=== PATIENT | male | born 1950 | race Caucasian/White ===

== ENCOUNTER 2019-08-15 15:30 | Observation (INO) | payer MEDICARE, MEDICAID ==
[~2019-08-15] VITALS: Ht 177.8 cm; Wt 60.2 kg
--- NOTE | 2019-08-15 15:53 | NUR ---
REPORT FROM [facility]. PT CURRENTLY BEING TAKEN TO IMAGING.
[2019-08-15] MEDS ORDERED: PANTOPRAZOLE 80 MG in SODIUM CHLORIDE 0.9% 50 ML IVPB ONE (15:54)
[2019-08-15] MEDS ORDERED: PANTOPRAZOLE 80 MG in SODIUM CHLORIDE 0.9% 100 ML IV SCH ×2 (16:00→19:00)
[2019-08-15] MEDS ORDERED: SODIUM CHLORIDE 0.9% 1,000ML IVBOLUS ONE ×2 (16:00→17:00)
[2019-08-15] MEDS ORDERED: SODIUM CHLORIDE FLUSH 10ML SYR IVF ONE (16:00)
[2019-08-15] MEDS ORDERED: THIAMINE 100 MG/ML, 2ML IM SCH (16:15)
[2019-08-15 16:28] LABS: MEAN CORPUSCULAR HEMOGLOBIN 30.4 pg (27.5-34.5); MEAN CORPUSCULAR HGB CONC 33.4 g/dL (33.2-36.2); MEAN PLATELET VOLUME 8.1 fL (7.4-10.4); PLATELET COUNT 362 x10^3/uL (130-400); RED BLOOD COUNT 3.93 x10^6/uL (4.38-5.82)
[2019-08-15] MEDS ORDERED: METOCLOPRAMIDE 5 MG/ML, 2ML ONE (16:28)
[2019-08-15] MEDS ORDERED: THIAMINE 100 MG/ML, 2ML ONE (16:28)
[2019-08-15] MEDS ORDERED: METOCLOPRAMIDE 5 MG/ML, 2ML IVPush ONE (16:30)
[2019-08-15 16:37] LABS: INTERNATIONAL NORMALIZED RATIO 0.97 (0.93-1.1); PROTHROMBIN TIME 10.3 Seconds (9.6-11.5)
[2019-08-15 16:42] LABS: ALANINE AMINOTRANSFERASE 22 U/L (12-78); ALBUMIN 3.4 g/dL (3.4-5.0); ANION GAP 11 mmol/L (5-15); CALCIUM 8.7 mg/dL (8.5-10.1); CHLORIDE 114 mmol/L (98-107); CREATININE 1.15 mg/dL (0.7-1.3)
[2019-08-15 16:46] LABS: ALKALINE PHOSPHATASE 59 U/L (45-117); BILIRUBIN,TOTAL 0.3 mg/dL (0.2-1.0); TOTAL PROTEIN 6.5 g/dL (6.4-8.2); TROPONIN I < 0.015 ng/mL (0.000-0.045)
--- NOTE | 2019-08-15 16:48 | NUR ---
1ST IV STARTED, IVF INFUSING PER EMAR. VILLEGAS RN AT BEDSIDE FOR SECOND IV. PT ANXIOUS. ENCOURAGED TO TAKE SLOWER BREATHS. BLANKETS AND BEAR WARMER APPLIED. ICE CHIPS GIVEN FOR DISTRACTION WITH ERMD PERMISSION.
[2019-08-15] MEDS ORDERED: LORazepam 2 MG/ML, 1ML IVPush PRN (17:00)
[2019-08-15 17:01] LABS: BASOPHILS # (AUTO) 0.01 x10^3/uL (0-0.1); BASOPHILS % (AUTO) 0 % (0-1); EOSINOPHILS # (AUTO) 0.01 x10^3/uL (0-0.4); EOSINOPHILS % (AUTO) 0 % (1-7); LYMPHOCYTES # (AUTO) 0.98 x10^3/uL (1-3.4); LYMPHOCYTES % (AUTO) 5 % (22-44); MD SCAN; MONOCYTES # (AUTO) 0.61 x10^3/uL (0.2-0.8); MONOCYTES % (AUTO) 3 % (2-9); NEUTROPHILS # (AUTO) 17.47 x10^3/uL (1.8-6.8); NEUTROPHILS % (AUTO) 92 % (42-75)
[2019-08-15] MEDS ORDERED: DIPHENHYDRAMINE 50 MG/ML, 1ML ONE (17:02)
[2019-08-15] MEDS ORDERED: DIPHENHYDRAMINE 50 MG/ML, 1ML IVPush ONE (17:30)
--- NOTE | 2019-08-15 17:47 | NUR ---
PT CALM, VS IMPROVED FOLLOWING [facility] MEDICATION ADMINISTRATION. ERMD AWARE OF VS AND PT STATUS, WHICH IS SOMNOLENT. BLANKETS IN PLACE, SIDE RAILS UP. CALL LIGHT IN REACH.
--- NOTE | 2019-08-15 18:09 | NUR ---
PT CLEANED WITH WARM CLOTH ON LEGS, FACE, CHEST, ARMS, HANDS. AWAKENS EASILY TO VOICE. NAD NOTED AT THIS TIME.
[2019-08-15] MEDS ORDERED: NITROGLYCERIN 0.4 MG BOTTLE (25 TABS) SL PRN (19:00)
[2019-08-15] MEDS ORDERED: LIDODERM 5% PATCH TD PRN (19:00)
[2019-08-15] MEDS ORDERED: LORazepam 2 MG/ML, 1ML IV PRN ×5 (19:00)
[2019-08-15] MEDS ORDERED: LABETALOL 5MG/ML, 20ML IVPush PRN (19:00)
[2019-08-15] MEDS ORDERED: ONDANSETRON 2MG/ML, 2ML IVPush PRN (19:00)
[2019-08-15 19:06] VITALS: BP 128/81
[2019-08-15] MEDS ORDERED: DEXTROSE 50%, 50ML SYRINGE IVPush PRN (19:30)
[2019-08-15] MEDS ORDERED: DEXTROSE 4 GM TAB.CHEW PO PRN (19:30)
[2019-08-15] MEDS ORDERED: GLUCAGON 1 MG IM PRN (19:30)
[2019-08-15] MEDS: INSULIN LISPRO 100 UNITS/ML, PEN SQ-INSULIN SCH (19:59)
[2019-08-15] MEDS: SODIUM CHLORIDE FLUSH 10ML SYR IVF SCH (20:00)
[2019-08-15] MEDS ORDERED: GABA-827 PO (20:08)
[2019-08-15] MEDS ORDERED: FURO80TA3 PO (20:08)
[2019-08-15 20:13] VITALS: BP 128/81
[2019-08-15] MEDS: LACTATED RINGERS 1,000 ML IV SCH (21:10)
[2019-08-15 21:34] VITALS: BP 128/81
[2019-08-15 22:59] LABS: TROPONIN I 0.082 ng/mL (0.000-0.045)
[2019-08-16 00:33] VITALS: BP 128/84
[2019-08-16 01:22] VITALS: BP 147/81
[2019-08-16 06:25] LABS: CALCIUM 8.1 mg/dL (8.5-10.1); CHLORIDE 117 mmol/L (98-107)
[2019-08-16 06:33] LABS: ANION GAP 6 mmol/L (5-15); CHOL/HDL RATIO 2.8; CHOLESTEROL, TOTAL 83 mg/dL (140-239); CREATININE 0.97 mg/dL (0.7-1.3); HDL CHOL % 36 % (26-37); HDL CHOLESTEROL (DIRECT) 30 mg/dL (40-60); LDL CHOLESTEROL,CALCULATED 37 mg/dL (54-169); LDL/HDL RATIO 1.2 (0.5-3.0); TRIGLYCERIDES 82 mg/dL (50-200); TROPONIN I 0.017 ng/mL (0.000-0.045); VLDL CHOLESTEROL 16 mg/dL (0-25)
[2019-08-16] MEDS: INSULIN LISPRO 100 UNITS/ML, PEN SQ-INSULIN SCH ×4 (07:25→20:35)
[2019-08-16] MEDS: SODIUM CHLORIDE FLUSH 10ML SYR IVF SCH ×2 (07:58→21:22)
[2019-08-16 08:09] VITALS: BP 112/69
[2019-08-16] MEDS ORDERED: FENTANYL PF 100 MCG/2ML ONE (10:01)
[2019-08-16] MEDS ORDERED: DEXAMETHASONE 4 MG/ML, 1ML ONE (10:15)
[2019-08-16] MEDS ORDERED: PROPOFOL 10 MG/ML, 20ML ONE (10:15)
[2019-08-16] MEDS ORDERED: SUCCINYLCHOLINE 20 MG/ML, 10ML ONE (10:15)
[2019-08-16] MEDS ORDERED: ROCURONIUM 10MG/ML,5ML ONE (10:15)
[2019-08-16] MEDS ORDERED: CEFAZOLIN 1,000 MG ONE (10:15)
[2019-08-16] MEDS ORDERED: NEOSTIGMINE 1 MG/ML, 10ML ONE (10:15)
[2019-08-16] MEDS ORDERED: ONDANSETRON 2MG/ML, 2ML ONE (10:15)
[2019-08-16] MEDS ORDERED: GLYCOPYRROLATE 0.2MG/1ML, 5ML ONE (10:15)
[2019-08-16] MEDS ORDERED: ACETAMINOPHEN 325 MG TABLET PO PRN (11:00)
[2019-08-16] MEDS ORDERED: LORazepam 2 MG/ML, 1ML IVPush PRN (11:00)
[2019-08-16] MEDS ORDERED: FENTANYL PF 100 MCG/2ML IV PRN (11:00)
[2019-08-16] MEDS ORDERED: OXYcodone 5 MG/5 ML ORAL.SOL UDC PO PRN (11:00)
[2019-08-16] MEDS ORDERED: PROMETHAZINE 25 MG/ML, 1ML IV PRN (11:00)
[2019-08-16] MEDS ORDERED: ONDANSETRON 2MG/ML, 2ML IV PRN (11:00)
[2019-08-16] MEDS ORDERED: PROMETHAZINE 25 MG SUPP PR PRN (11:00)
[2019-08-16] MEDS ORDERED: ONDANSETRON ODT 8 MG PO PRN (11:00)
[2019-08-16] MEDS: LACTATED RINGERS 1,000 ML IV SCH (12:08)
[2019-08-16 12:55] VITALS: BP 137/72
[2019-08-16 18:30] VITALS: BP 118/68
[2019-08-16] MEDS: PANTOPRAZOLE 40MG TABLET PO SCH (21:22)
[2019-08-17] MEDS: morphine SULFATE 10 MG/ML, 1ML IVPush PRN ×2 (00:36→19:37)
[2019-08-17] MEDS: LACTATED RINGERS 1,000 ML IV SCH (00:43)
[2019-08-17 00:48] VITALS: BP 128/75
[2019-08-17 06:19] LABS: BASOPHILS # (AUTO) 0.04 x10^3/uL (0-0.1); BASOPHILS % (AUTO) 1 % (0-1); EOSINOPHILS # (AUTO) 0.25 x10^3/uL (0-0.4); EOSINOPHILS % (AUTO) 3 % (1-7); LYMPHOCYTES # (AUTO) 1.99 x10^3/uL (1-3.4); LYMPHOCYTES % (AUTO) 23 % (22-44); MD NO; MEAN CORPUSCULAR HGB CONC 33.8 g/dL (33.2-36.2); MEAN CORPUSCULAR VOLUME 91.7 fL (81-97); MEAN PLATELET VOLUME 8.8 fL (7.4-10.4); MONOCYTES % (AUTO) 8 % (2-9); NEUTROPHILS # (AUTO) 5.74 x10^3/uL (1.8-6.8); NEUTROPHILS % (AUTO) 66 % (42-75); PLATELET COUNT 209 x10^3/uL (130-400); RED BLOOD COUNT 2.52 x10^6/uL (4.38-5.82); RED CELL DISTRIBUTION WIDTH 16.2 % (9.4-14.8)
[2019-08-17 06:23] LABS: ANION GAP 5 mmol/L (5-15); CALCIUM 7.9 mg/dL (8.5-10.1); CHLORIDE 111 mmol/L (98-107)
[2019-08-17 06:24] LABS: CREATININE 0.78 mg/dL (0.7-1.3)
[2019-08-17 06:31] VITALS: BP 138/70
[2019-08-17] MEDS: INSULIN LISPRO 100 UNITS/ML, PEN SQ-INSULIN SCH ×2 (07:00→11:53)
[2019-08-17] MEDS: PANTOPRAZOLE 40MG TABLET PO SCH ×2 (07:53→20:20)
[2019-08-17] MEDS: SODIUM CHLORIDE FLUSH 10ML SYR IVF SCH ×2 (07:54→20:21)
[2019-08-17 12:07] VITALS: BP 151/75
[2019-08-17 19:24] VITALS: BP 122/67
[2019-08-18 00:44] VITALS: BP 146/80
[2019-08-18 06:09] VITALS: BP 158/83
[2019-08-18 06:23] LABS: BASOPHILS # (AUTO) 0.04 x10^3/uL (0-0.1); BASOPHILS % (AUTO) 1 % (0-1); EOSINOPHILS # (AUTO) 0.19 x10^3/uL (0-0.4); EOSINOPHILS % (AUTO) 3 % (1-7); LYMPHOCYTES # (AUTO) 1.52 x10^3/uL (1-3.4); LYMPHOCYTES % (AUTO) 20 % (22-44); MD NO; MEAN CORPUSCULAR HEMOGLOBIN 30.4 pg (27.5-34.5); MEAN CORPUSCULAR HGB CONC 33.1 g/dL (33.2-36.2); MEAN CORPUSCULAR VOLUME 91.7 fL (81-97); MEAN PLATELET VOLUME 8.3 fL (7.4-10.4); MONOCYTES # (AUTO) 0.55 x10^3/uL (0.2-0.8); MONOCYTES % (AUTO) 7 % (2-9); NEUTROPHILS % (AUTO) 69 % (42-75); PLATELET COUNT 239 x10^3/uL (130-400); RED BLOOD COUNT 2.75 x10^6/uL (4.38-5.82); RED CELL DISTRIBUTION WIDTH 16.3 % (9.4-14.8)
[2019-08-18 06:37] LABS: ANION GAP 6 mmol/L (5-15); CALCIUM 8.3 mg/dL (8.5-10.1); CHLORIDE 108 mmol/L (98-107)
[2019-08-18 06:40] LABS: CREATININE 0.73 mg/dL (0.7-1.3)
[2019-08-18] MEDS: morphine SULFATE 10 MG/ML, 1ML IVPush PRN ×3 (06:44→15:58)
[2019-08-18] MEDS ORDERED: REGADENOSON 0.4 MG/5 ML SYRINGE ONE (08:06)
[2019-08-18] MEDS: PANTOPRAZOLE 40MG TABLET PO SCH (08:30)
[2019-08-18] MEDS: SODIUM CHLORIDE FLUSH 10ML SYR IVF SCH (08:53)
[2019-08-18] MEDS ORDERED: AMLODIPINE 10 MG TAB PO SCH (09:00)
[2019-08-18] MEDS ORDERED: PANTOPRAZOLE 40 MG IV IVPush SCH (09:00)
[2019-08-18] MEDS ORDERED: PANT40TA5 PO (13:43)
[2019-08-18 14:50] VITALS: BP 138/78
[2019-08-18] MEDS ORDERED: PANTOPRAZOLE 40MG TABLET PO SCH (16:00)
== END 2019-08-18 16:44 ==
LOC: ED 15:50 → INTOOBSV 17:18 → EDIP 17:18 → 4WST 18:50
PROVIDERS: ADMIT Family Medicine; ATTEND Hospitalist
DX: K25.4 Chronic or unspecified gastric ulcer with hemorrhage (principal); K20.9 Esophagitis, unspecified; R07.89 Other chest pain; E43 Unspecified severe protein-calorie malnutrition; D62 Acute posthemorrhagic anemia; E87.2 Acidosis; R65.10 Systemic inflammatory response syndrome (SIRS) of non-infectious origin without acute organ dysfunction; I24.8 Other forms of acute ischemic heart disease; R64 Cachexia; E11.9 Type 2 diabetes mellitus without complications; E86.0 Dehydration; F10.20 Alcohol dependence, uncomplicated; I10 Essential (primary) hypertension; F17.200 Nicotine dependence, unspecified, uncomplicated; K44.9 Diaphragmatic hernia without obstruction or gangrene; Z88.0 Allergy status to penicillin; Z90.49 Acquired absence of other specified parts of digestive tract
CPT/HCPCS: 36415; 43235; 74022; 78452; 80048; 80053; 80061; 80307; 82962; 83605; 83690; 83735; 84484; 85014; 85018; 85025; 85610; 86850; 86900; 88305; 88342; 93005; 96365; 96366; 96372; 96375; 96376; 97162; 97166; 99291; A9502; C9113; G0378; J0330; J0690; J1100; J1200; J2270; J2405; J2704; J2710; J2765; J3010; J3411; J7030; J7120; 96374; J2785

== ENCOUNTER 2020-09-29 15:25 | Emergency (ER) | payer MEDICARE, MEDICAID ==
[~2020-09-29] VITALS: Ht 177.8 cm; Wt 62.1 kg
[~2020-09-29 15:25] MED LIST: FURO80TA3 PO; GABA-827 PO; PANT40TA6 PO
--- NOTE | 2020-09-29 15:59 | NUR ---
ASSUMED CARE OF PATIENT. PATIENT REPORTS RIGHT LOWER ABD PAIN SINCE YESTERDAY. VS STABLE. CALL LIGHT IN PLACE. WILL CONTINUE TO MONITOR.
[2020-09-29] MEDS ORDERED: MORPHINE SULFATE 4 MG/ML, 1ML ONE (16:18)
[2020-09-29] MEDS ORDERED: ONDANSETRON 2MG/ML, 2ML ONE (16:18)
--- NOTE | 2020-09-29 16:23 | NUR ---
PT HAS BEEN SEEN BY DR FELIPE. PT MEDICATED FOR 12/26 RIGHT ABD PAIN. VS STABLE. PULSE OX ON. NO ACUTE DISTRESS NOTED. WILL CONTINUE TO MONITOR.
[2020-09-29] MEDS ORDERED: ONDANSETRON 2MG/ML, 2ML IVPush ONE (16:30)
[2020-09-29] MEDS ORDERED: SODIUM CHLORIDE FLUSH 10ML SYR IVF ONE (16:30)
[2020-09-29] MEDS ORDERED: SODIUM CHLORIDE 0.9% 1,000ML IVBOLUS ONE (16:30)
[2020-09-29] MEDS ORDERED: MORPHINE SULFATE 4 MG/ML, 1ML IVPush PRN (16:30)
[2020-09-29 17:02] LABS: BASOPHILS % (AUTO) 2 % (0-1); EOSINOPHILS % (AUTO) 4 % (1-7); LYMPHOCYTES % (AUTO) 23 % (22-44); MEAN CORPUSCULAR HEMOGLOBIN 25.7 pg (27.5-34.5); MEAN CORPUSCULAR HGB CONC 31.8 g/dL (33.2-36.2); MEAN PLATELET VOLUME 7.7 fL (7.4-10.4); MONOCYTES % (AUTO) 11 % (2-9); NEUTROPHILS % (AUTO) 60 % (42-75); PLATELET COUNT 316 x10^3/uL (130-400); RED BLOOD COUNT 5.04 x10^6/uL (4.38-5.82); RED CELL DISTRIBUTION WIDTH 19.3 % (9.4-14.8)
[2020-09-29 17:04] LABS: MD NO
[2020-09-29 17:12] LABS: ALANINE AMINOTRANSFERASE 25 U/L (12-78); ALBUMIN 3.7 g/dL (3.4-5.0); ANION GAP 4 mmol/L (5-15); CALCIUM 8.2 mg/dL (8.5-10.1); CHLORIDE 111 mmol/L (98-107); CREATININE 0.87 mg/dL (0.7-1.3)
[2020-09-29 17:14] LABS: ALKALINE PHOSPHATASE 92 U/L (45-117); BILIRUBIN,TOTAL 0.2 mg/dL (0.2-1.0)
[2020-09-29 17:43] LABS: MICROSCOPIC INDICATED
--- NOTE | 2020-09-29 17:51 | NUR ---
PT AT CT
[2020-09-29] MEDS ORDERED: OMNIPAQUE 350 MG/ML, 100ML BOTTLE ONE (17:54)
--- NOTE | 2020-09-29 18:04 | NUR ---
PT IN ROOM. VS STABLE. CALL LIGHT IN PLACE. WILL CONTINUE TO MONITOR.
--- NOTE | 2020-09-29 18:39 | NUR ---
DR NI HAS UPDATED PATIENT.
[2020-09-29 18:40] VITALS: BP 166/96
== END 2020-09-29 18:58 | disposition home or self-care (01) ==
LOC: ED 15:57
DX: K52.9 Noninfective gastroenteritis and colitis, unspecified (principal); R10.84 Generalized abdominal pain; E86.0 Dehydration; Z87.891 Personal history of nicotine dependence
CPT/HCPCS: 36415; 74177; 80053; 81001; 85025; 96361; 96374; 96375; 99285; J2270; J2405; J7030; Q9967